=== PATIENT | female | born 1995 | race Caucasian/White ===

== ENCOUNTER 2021-11-27 13:29 | Emergency (ER) | payer OTHER, SELFPAY ==
[2021-11-27 13:33] VITALS: BP 115/78; PULSE 68; RESP 18; TEMP 36.6; O2SAT 99; BMI 31.1
--- NOTE | 2021-11-27 13:37 | DI.RAD.S_ITS ---
PROCEDURE: XR HAND LT MIN 3V INDICATIONS: hyper extended left thumb, pain at base. TECHNIQUE: 3 views of the hand(s) acquired. COMPARISON: None. FINDINGS: Bones: No fractures or dislocations. Carpal bones are normally aligned. No suspicious bony lesions. Soft tissues: No suspicious soft tissue calcifications. IMPRESSION: No fracture. No osseous lesion. If symptoms and/or clinical suspicion for pathology persists, further assessment with repeat radiographs (7-10 days) or advanced imaging (e.g. CT, MRI or bone scan) should be considered. Dictated by: Annie Castrejon MD, PhD on 11/27/2021 at 13:54 Approved by: Annie Castrejon MD, PhD on 11/27/2021 at 13:55
[2021-11-27 13:41] VITALS: PULSE 70
--- NOTE | 2021-11-27 13:52 | ED_ITS ---
HPI - Extremity Injury (Upper) <RENETTA Avelar - Last Filed: 11/27/21 14:15> General Chief Complaint: Extremity Injury, Upper Stated Complaint: hyperextended left thumb Time Seen by Provider: 11/27/21 13:44 Source: patient Mode of arrival: Ambulatory History of Present Illness HPI narrative: 26-year-old [id number]-[id number] female presents to the emergency department complaining of left thumb pain into her wrist after hyperextending her thumb accidental with force last night. Patient reports she heard cracking in the base and middle of her left thumb and it has been painful ever since. Her range of motion is intact and limited only due to pain. Flexion and extension at approximately 30% of normal, medial and lateral movement intact. Patient denies any sensation changes, wrist pain, snuffbox tenderness, wrist or elbow injury. She endorses that she has carpal tunnel in her right wrist but not her left. She has a superficial wound on the medial aspect of her left thumb which is from a work injury. Related Data Home Medications Medication Instructions Recorded Confirmed No Known Home Medications 11/27/21 11/27/21 Allergies Allergy/AdvReac Type Severity Reaction Status Date / Time No Known Drug Allergies Allergy Verified 11/27/21 13:37 Review of Systems <RENETTA Avelar - Last Filed: 11/27/21 14:15> Review of Systems Narrative: General: denies fever, chills, malaise, sweats, fatigue Head/Neck: denies headache, neck pain, dizziness Eyes: denies visual changes, eye pain Cardio: denies chest pain, palpitations, edema Respiratory: denies dyspnea, cough, orthopnea GI: denies abdominal pain, nausea, vomiting, or diarrhea : denies dysuria, hematuria, urinary retention, frequency or incontinence MSK: Endorses left base of thumb pain, denies other joint pain or muscle weakness Skin: denies rash, itching, skin lesions or other Neuro: denies numbness, tingling Patient History <RENETTA Avelar - Last Filed: 11/27/21 14:15> Social History Smoking Status: Never smoker Smoking Status: Never smoker alcohol intake frequency: 0-2 drinks per day Substance Use Type: does not use Exam <RENETTA Avelar - Last Filed: 11/27/21 14:15> Narrative Exam Narrative: Independently reviewed vitals signs and nursing notes. General: Awake, alert, well-nourished and developed, nontoxic, no cardiorespiratory distress Head/Neck: Atraumatic, neck full range of motion Cardio: Regular rate and rhythm, no peripheral edema Respiratory: respirations unlabored without wheezing, stridor, or rales. No retractions. MSK: Moves all extremities, neurovascularly intact, tenderness over left MCP, basal CMC joint with ecchymosis, + snuffbox tenderness, no pain over distal radial head or distal ulna, small abrasion over proximal MCP which is unrelated to this injury. Skin: Normal capillary refill, no rash Neuro: Normal speech and cognition, normal gait, A&O x3 Initial Vital Signs Initial Vital Signs: Vital Signs Temperature 97.8 F 11/27/21 13:33 Pulse Rate 68 11/27/21 13:33 Respiratory Rate 18 11/27/21 13:33 Blood Pressure 115/78 11/27/21 13:33 Pulse Oximetry 99 11/27/21 13:33 <Whitney Gonsalez DO - Last Filed: 11/27/21 18:55> Initial Vital Signs Initial Vital Signs: Vital Signs Temperature 97.8 F 11/27/21 13:33 Pulse Rate 68 11/27/21 13:33 Respiratory Rate 18 11/27/21 13:33 Blood Pressure 115/78 11/27/21 13:33 Pulse Oximetry 99 11/27/21 13:33 Procedures <RENETTA Avelar - Last Filed: 11/27/21 14:15> Orthopedic Splinting/Casting Injury #1: Side: left Upper Extremity Injury Location: wrist and finger Upper Extremity Immobilizer: thumb spica Post splinting neuro exam: intact and no change Post splinting vascular exam: no change Placed by: Provider Course <RENETTA Avelar - Last Filed: 11/27/21 14:15> Orders Ordered: ED Orders 11/27/21 13:37 XR hand LT min 3V Stat Discontinued Medications Ibuprofen (Ibuprofen 400 Mg Tablet) 800 mg PO NOW ONE Stop: 11/27/21 14:04 Last Admin: 11/27/21 14:12 Dose: 800 mg Documented by: SOUTH Vital Signs Vital signs: Vital Signs - 8 hr 11/27/21 13:33 11/27/21 13:41 Temperature 97.8 F Pulse Rate 68 Pulse Rate [Left Radial] 70 Respiratory Rate 18 Blood Pressure 115/78 Pulse Oximetry 99 <Whitney Gonsalez DO - Last Filed: 11/27/21 18:55> Orders Ordered: ED Orders 11/27/21 13:37 XR hand LT min 3V Stat Discontinued Medications Ibuprofen (Ibuprofen 400 Mg Tablet) 800 mg PO NOW ONE Stop: 11/27/21 14:04 Last Admin: 11/27/21 14:12 Dose: 800 mg Documented by: SOUTH Vital Signs Vital signs: Vital Signs - 8 hr 11/27/21 13:33 11/27/21 13:41 Temperature 97.8 F Pulse Rate 68 Pulse Rate [Left Radial] 70 Respiratory Rate 18 Blood Pressure 115/78 Pulse Oximetry 99 MDM - Extremity Injury (Upper) <Modesta [place] [facility] - Last Filed: 11/27/21 14:15> Imaging Data Extremity x-ray #1: Radiologist's Impression: PROCEDURE:? XR HAND LT MIN 3V ? INDICATIONS:? hyper extended left thumb, pain at base. ? TECHNIQUE:? 3 views of the hand(s) acquired.? ? COMPARISON:? None. ? FINDINGS:? ? Bones:? No fractures or dislocations.? Carpal bones are normally aligned.? No suspicious bony lesions.? ? Soft tissues:? No suspicious soft tissue calcifications.? ? ? IMPRESSION:? No fracture. No osseous lesion. If symptoms and/or clinical suspicion for pathology persists, further assessment with repeat radiographs (7-10 days) or advanced imaging (e.g. CT, MRI or bone scan) should be considered. ? ? Dictated by: Annie Castrejon MD, PhD on 11/27/2021 at 13:54 ? ? Approved by: Annie Castrejon MD, PhD on 11/27/2021 at 13:55 ? MDM Narrative Medical decision making narrative: 26-year-old right-handed female presents to the emergency department with left thumb pain from a hyperextension injury which occurred last night. Patient reports she was extending her hand out and her friend came by and hit the top of her thumb causing it to bend backwards towards her wrist. She heard a crack, and today has some ecchymosis around the D IP and MCP joint, she does endorse snuffbox tenderness with palpation, full range of motion without pain in her wrist, cap refill less than 2 seconds in her left thumb, range of motion limited approximately 50% due to pain during flexion and extension, no range of motion deficit lateral or medial. X-ray was negative for acute osseous abnormality, recommended she wear a thumb spica splint for the next few weeks until she is pain-free. If she has ongoing pain after 2 weeks I have referred her to Orthopedics for follow-up. Patient is appropriate and amenable to discharge home. Vital signs are stable on repeat examination is unremarkable. Patient has been informed of results. Patient has been given strict return to ER precautions for any new or worsening symptoms. Patient understands to follow up closely with outpatient providers as instructed. Patient understands plan and agrees to discharge home. All questions and concerns answered at this time. Discharge Plan Departure Patient Disposition: Home Clinical Impression: Thumb injury Qualifiers: Encounter type: initial encounter Laterality: left Qualified Code(s): S69.92XA - Unspecified injury of left wrist, hand and finger(s), initial encounter Instructions: Ulnar Collateral Ligament Sprain of Thumb Activity Restrictions/Additional Instructions: *You have been diagnosed with a thumb injury from hyper extension. Sometimes we call this a skier's thumb or an ulnar collateral ligament sprain. This can be a painful injury and take a while to heal. Please use ibuprofen every 6-8 hours as you need for pain, take food water with that, ice it and wear your splint for the next few days to see if it starts to get better. If it is not any better in a couple weeks and you need to wear your splint to do normal activities, please follow-up with orthopedics. I hope it feels better soon. *What to do: *Please continue to take your regular medications as directed. [ ] New medication prescriptions sent to your pharmacy: [ ] [ ] New medication written as a paper prescription [ x] No new medications given *Please follow up with your primary care provider in 2-3 days, call for an appointment. Let them know you were seen in the Emergency Department and that we ask that you be seen in follow up. We will electronically transmit a record of today's note if your PCP is in our system *If you do not have a primary care provider please contact the [facility] Resource line at [phone]. They will ask some questions about your medical history and help get you set up with a doctor in the community. *Return to Emergency Department if you should have any new, worsening or concerning symptoms, such as [fever greater than 101F, chills, worsening pain, persistent vomiting or other bothersome symptoms] Prescriptions: No Action No Known Home Medications 0RF Referrals: [facility] [Provider Group] <Whitney Gonsalez, - Last Filed: 11/27/21 18:55> Cosign ED Attending Deepakature Attestation: I was immediately available in the department for consultation. Documentation has been reviewed.
[2021-11-27] MEDS: IBUPROFEN 400 MG TABLET 800 MG PO (14:12)
== END 2021-11-27 14:21 | disposition home or self-care (01) ==
PROVIDERS: Emergency Provider Nurse Practitioner Critical Care Medicine
DX: S69.92XA Unspecified injury of left wrist, hand and finger(s), initial encounter (principal); W50.0XXA Accidental hit or strike by another person, initial encounter; Y93.89 Activity, other specified
CPT/HCPCS: 29260; 73130; 99283

== ENCOUNTER → 2024-10-25 11:26 | Outpatient (CLI) | payer OTHER, SELFPAY ==
--- NOTE | 2024-10-25 | DI.MRI.S_ITS ---
PROCEDURE: MR CERVICAL SPINE WO CON INDICATIONS: Nerve root and plexus disorder, unspecified TECHNIQUE: Noncontrast sagittal T1 spin echo and T2 fast spin echo, sagittal STIR, foraminal oblique sagittal T2 fast spin echo, and axial gradient echo or T2 fast spin echo through the cervical spine. COMPARISON: None. FINDINGS: Image quality: Excellent. Alignment and Curvature: There is loss of normal cervical lordosis. Bone Marrow: Marrow demonstrates normal overall signal. Spinal Cord: Visualized spinal cord has normal size and signal. No cerebellar tonsillar herniation. Paraspinous Soft Tissues: No paravertebral masses. Prevertebral soft tissues are normal in thickness. C2-C3: Normal appearance. C3-C4: Normal appearance. C4-C5: Normal appearance. C5-C6: Mild disc desiccation and diffuse disc bulge. Minimal canal stenosis. No foraminal stenosis. C6-C7: Normal appearance. C7-T1: Normal appearance. IMPRESSION: 1. Loss of cervical lordosis, suggestive of muscle spasm. 2. Minimal lower cervical disc disease without significant canal nor foraminal stenosis. Dictated by: Cornelius Mello M.D. on 10/25/2024 at 12:25 Approved by: Cornelius Mello M.D. on 10/25/2024 at 12:42
== END ==
PROVIDERS: Referring Provider Student in an Organized Health Care Education/Training Program; Visit Provider Student in an Organized Health Care Education/Training Program
DX: G54.9 Nerve root and plexus disorder, unspecified (principal)
CPT/HCPCS: 72141

== ENCOUNTER → 2024-12-27 07:41 | Outpatient (CLI) | payer OTHER, SELFPAY ==
--- NOTE | 2024-12-27 | DI.MRI.S_ITS ---
PROCEDURE: MR WRIST RT WO CON INDICATIONS: PAIN IN RIGHT WRIST TECHNIQUE: Noncontrast coronal proton density fast spin echo and T2 fast spin echo with fat saturation; coronal 3-D gradient echo, axial T1 spin echo and T2 fast spin echo with fat saturation, sagittal T1 spin echo through the wrist. COMPARISON: None. FINDINGS: Image quality: Excellent. Bones and cartilage: The carpal bones are normally aligned. No bone marrow contusions or fractures. No evidence for avascular necrosis. Carpal ligaments: The scapholunate and lunotriquetral ligaments appear intact. On sagittal images, the pisohamate ligament appears intact. Triangular fibrocartilage complex: The triangular fibrocartilage appears intact. Tendons and soft tissues: Mild volar bowing of the flexor retinaculum. Median nerve appears mildly thickened. Flexor tendons appear to be intact. The ulnar nerve appears normal within Guyon's canal. Mild extensor carpi ulnaris tendinosis. Mild tendinosis of the extensor pollicis longus tendon and the extensor pollicis brevis and abductor pollicis longus tendons. The remaining extensor tendon compartments demonstrate normal morphology, without pathologic tendon sheath fluid. Ganglion cyst is seen along the volar aspect of the 2nd carpometacarpal joint measuring approximately 13 x 5 x 3 mm. IMPRESSION: 1. Mild tendinosis of the 1st, 3rd, and 6th extensor compartment tendons. 2. Thickening of the median nerve and volar bowing of the flexor retinaculum can be seen in the setting of carpal tunnel syndrome/median neuritis. Recommend correlation with neurologic exam findings. 3. Ganglion cyst deep to the carpal tunnel along the volar aspect of the 2nd carpometacarpal joint measures up to 13 mm. 4. No acute trabecular bone injury. No significant ligament injury is seen. Approved by: Gael Ramirez M.D. on 12/27/2024 at 15:31
== END ==
PROVIDERS: Referring Provider Student in an Organized Health Care Education/Training Program; Visit Provider Student in an Organized Health Care Education/Training Program
DX: M67.431 Ganglion, right wrist (principal); M25.531 Pain in right wrist; M67.931 Unspecified disorder of synovium and tendon, right forearm
CPT/HCPCS: 73221